=== PATIENT | female | born 1990 | race Caucasian/White ===

== ENCOUNTER 2022-07-25 12:08 | Emergency (ER) | payer OTHER ==
[2022-07-25 12:18] VITALS: RESP 16; TEMP 97.6
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
--- NOTE | 2022-07-25 13:13 | XR ---
EXAMINATION TYPE: XR ankle complete RT DATE OF EXAM: 07/25/2022 COMPARISON: NONE HISTORY: 32-year-old female pain from fall, trauma TECHNIQUE: 3 views FINDINGS: Ankle mortise is congruent. On the mortise view, questionable osteochondral injury along th e lateral talar dome. Unclear if this is projectional as it is not seen on the AP view. Subtalar join t align. No acute fracture, subluxation, dislocation otherwise seen. Smooth delineation to the Achill es tendon. Tiny os peroneum. IMPRESSION: Questionable osteochondral lesion lateral talar dome on the mortise view versus projectional artifact . No other acute osseous abnormality seen.
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
[2022-07-25 14:02] VITALS: BP 120/60; PULSE 68
== END 2022-07-25 14:02 | disposition home or self-care (01) ==
LOC: EC 12:08
DX: S93.409A Sprain of unspecified ligament of unspecified ankle, initial encounter (principal); S90.31XA Contusion of right foot, initial encounter; F41.9 Anxiety disorder, unspecified; F17.200 Nicotine dependence, unspecified, uncomplicated; Z91.040 Latex allergy status; W50.1XXA Accidental kick by another person, initial encounter
CPT/HCPCS: 99283